=== PATIENT | male | born 1970 | race Caucasian/White ===

== ENCOUNTER → 2021-01-12 14:38 | Outpatient (CLI) | payer OTHER, SELFPAY ==
[2021-01-12 14:58] LABS: Add Manual Diff / Slide Review NO; Basophils Absolute Auto 0 /uL (0-100); Basophils Percent Auto 0.5 % (0-2); Eosinophils Absolute Auto 300 /uL (0-450); Eosinophils Percent Auto 5.3 % (2-4); Hematocrit 41.7 % (41-53); Hemoglobin 14.1 g/dL (13.5-17.5); Lymphocytes Absolute Auto 1500 /uL (1100-4500); Lymphocytes Percent Auto 25.7 % (25-40); Mean Corpuscular HGB Conc 33.8 % (30-36); Mean Corpuscular Hemoglobin 29.8 PG (26-34); Mean Corpuscular Volume 88.2 fL (80-100); Monocytes Absolute Auto 500 /uL (0-900); Monocytes Percent Auto 8.3 % (3-14); Neutrophils Absolute Auto 3600 /uL (1500-7000); Neutrophils Percent Auto 60.2 % (50-75); Platelet Count 243 X10^3/uL (150-400); Red Blood Cell Count 4.72 X10^6/uL (4.5-5.9); Red Cell Distribution Width 13.1 % (11.6-14.8)
[2021-01-12 16:56] LABS: Alanine Aminotransferase 57 IU/L (<50); Albumin 4.5 g/dL (3.5-5.0); Albumin Globulin Ratio 1.4 (1.0-2.8); Alkaline Phosphatase 53 U/L (38-126); Aspartate Aminotransferase 39 IU/L (17-59); BUN Creatinine Ratio 18.9 (6-22); Bilirubin Total 0.5 mg/dL (0.2-1.3); Blood Urea Nitrogen 17 mg/dL (9-20); Calcium 9.7 mg/dL (8.4-10.2); Carbon Dioxide 28 mmol/L (22-32); Chloride 103 mmol/L (98-107); Cholesterol 246 mg/dL (140-199); Estimated Glomerular Filt Rate > 60.0 mL/min (>60); Globulin 3.2 g/dL (1.7-4.1); Glucose 111 mg/dL (70-100); HDL Cholesterol 50 mg/dL (40-60); HEMOLYSIS < 15 (0-50); LDL Cholesterol Calculated 154 mg/dL (<100); Potassium 4.2 mmol/L (3.4-5.1); Sodium 139 mmol/L (137-145); Total Protein 7.7 g/dL (6.3-8.2); Triglycerides 209 mg/dL (35-150)
[2021-01-12 17:30] LABS: Prostate Specific Antigen 0.589 ng/mL (0.10-4.00)
== END ==
PROVIDERS: PCP Family Medicine; Referring Provider Family Medicine; Visit Provider Family Medicine
DX: I10 Essential (primary) hypertension (principal); M10.9 Gout, unspecified; R73.03 Prediabetes; Z83.79 Family history of other diseases of the digestive system
CPT/HCPCS: 36415; 80053; 80061; 83036; 84153; 84550; 85025

== ENCOUNTER → 2021-01-22 10:22 | Outpatient (CLI) | payer OTHER, SELFPAY ==
--- NOTE | 2021-01-22 10:24 | DI.US.S_ITS ---
PROCEDURE: US ABDOMEN LIMITED INDICATIONS: Family history of fatty infiltration of the liver. TECHNIQUE: Real-time focused scanning was performed of the abdomen, with image documentation. COMPARISON: None. FINDINGS: The liver demonstrates normal size. The liver demonstrates generalized moderately increased echogenicity. This decreases ultrasound sensitivity for detection of hepatic masses. Apparent focal fatty sparing can be seen adjacent to the gallbladder. No findings of gallstones or sludge are seen. The gallbladder wall is not thickened, measuring 3 mm or less. No specific pericholecystic fluid is seen. The sonographic Bliss sign is negative. There is no biliary dilatation, the common bile duct measures 4 mm. The pancreas is not well seen, secondary to overlying bowel gas. IMPRESSION: Fatty liver infiltration seen, with apparent fatty sparing seen adjacent to the gallbladder. Dictated by: Murali Dunham M.D. on 01/22/2021 at 10:41 Approved by: Murali Dunham M.D. on 01/22/2021 at 10:42
== END ==
PROVIDERS: PCP Family Medicine; Referring Provider Family Medicine; Visit Provider Family Medicine
DX: K76.0 Fatty (change of) liver, not elsewhere classified (principal); Z83.79 Family history of other diseases of the digestive system
CPT/HCPCS: 76705

== ENCOUNTER → 2022-10-27 09:08 | Outpatient (CLI) | payer OTHER, SELFPAY ==
[2022-10-27 09:48] LABS: Add Manual Diff / Slide Review NO; Basophils Absolute Auto 0 /uL (0-100); Basophils Percent Auto 0.7 % (0-2); Eosinophils Absolute Auto 200 /uL (0-450); Hematocrit 42.1 % (41-53); Hemoglobin 14.1 g/dL (13.5-17.5); Lymphocytes Absolute Auto 1700 /uL (1100-4500); Lymphocytes Percent Auto 32.7 % (25-40); Mean Corpuscular HGB Conc 33.5 % (30-36); Mean Corpuscular Hemoglobin 29.9 PG (26-34); Mean Corpuscular Volume 89.4 fL (80-100); Monocytes Absolute Auto 500 /uL (0-900); Monocytes Percent Auto 9.2 % (3-14); Neutrophils Absolute Auto 2800 /uL (1500-7000); Neutrophils Percent Auto 54.4 % (50-75); Platelet Count 252 X10^3/uL (150-400); Red Blood Cell Count 4.71 X10^6/uL (4.5-5.9); Red Cell Distribution Width 13.2 % (11.6-14.8); White Blood Cell Count 5.1 X10^3/uL (4.5-11.0)
[2022-10-27 10:47] LABS: Alanine Aminotransferase 51 IU/L (<50); Albumin 4.5 g/dL (3.5-5.0); Albumin Globulin Ratio 1.4 (1.0-2.8); Alkaline Phosphatase 52 U/L (38-126); Aspartate Aminotransferase 33 IU/L (17-59); BUN Creatinine Ratio 15.7 (6-22); Bilirubin Total 0.5 mg/dL (0.2-1.3); Blood Urea Nitrogen 14 mg/dL (9-20); Calcium 9.3 mg/dL (8.4-10.2); Carbon Dioxide 25 mmol/L (22-32); Chloride 103 mmol/L (98-107); Cholesterol 212 mg/dL (140-199); Estimated Glomerular Filt Rate > 60 mL/min (>60); Globulin 3.3 g/dL (1.7-4.1); Glucose 107 mg/dL (70-100); HDL Cholesterol 48 mg/dL (40-60); HEMOLYSIS 18 (0-50); LDL Cholesterol Calculated 142 mg/dL (<100); Potassium 4.4 mmol/L (3.4-5.1); Sodium 140 mmol/L (137-145); Total Protein 7.8 g/dL (6.3-8.2); Triglycerides 109 mg/dL (35-150); Uric Acid 7.7 mg/dL (3.5-8.5)
== END ==
PROVIDERS: PCP Family Medicine; Referring Provider Family Medicine; Visit Provider Family Medicine
DX: E78.5 Hyperlipidemia, unspecified (principal); I10 Essential (primary) hypertension; M10.9 Gout, unspecified; R73.03 Prediabetes
CPT/HCPCS: 36415; 80053; 80061; 83036; 84550; 85025

== ENCOUNTER → 2023-10-06 11:32 | Outpatient (CLI) | payer OTHER, SELFPAY ==
[2023-10-06 12:56] LABS: Add Manual Diff / Slide Review NO; Basophils Absolute Auto 0 /uL (0-100); Basophils Percent Auto 0.6 % (0-2); Eosinophils Absolute Auto 200 /uL (0-450); Eosinophils Percent Auto 3.1 % (2-4); Hematocrit 42.7 % (41-53); Hemoglobin 14.6 g/dL (13.5-17.5); Lymphocytes Absolute Auto 1800 /uL (1100-4500); Lymphocytes Percent Auto 24.2 % (25-40); Mean Corpuscular HGB Conc 34.2 % (30-36); Mean Corpuscular Hemoglobin 30.1 PG (26-34); Monocytes Absolute Auto 600 /uL (0-900); Monocytes Percent Auto 8.7 % (3-14); Neutrophils Absolute Auto 4700 /uL (1500-7000); Neutrophils Percent Auto 63.4 % (50-75); Platelet Count 313 X10^3/uL (150-400); Red Blood Cell Count 4.85 X10^6/uL (4.5-5.9); Red Cell Distribution Width 13.1 % (11.6-14.8); White Blood Cell Count 7.4 X10^3/uL (4.5-11.0)
[2023-10-06 13:24] LABS: Hemoglobin A1C% w Est Avg Glu 6.1 % (4.0-6.0)
[2023-10-06 13:33] LABS: Alanine Aminotransferase 43 IU/L (<50); Albumin 4.4 g/dL (3.5-5.0); Albumin Globulin Ratio 1.4 (1.0-2.8); Alkaline Phosphatase 58 U/L (38-126); Aspartate Aminotransferase 30 IU/L (17-59); BUN Creatinine Ratio 16.7 (6-22); Bilirubin Total 0.6 mg/dL (0.2-1.3); Blood Urea Nitrogen 14 mg/dL (9-20); Calcium 10.1 mg/dL (8.4-10.2); Carbon Dioxide 27 mmol/L (22-32); Chloride 102 mmol/L (98-107); Cholesterol 178 mg/dL (140-199); Estimated Glomerular Filt Rate > 60 mL/min (>60); Globulin 3.1 g/dL (1.7-4.1); Glucose 101 mg/dL (70-100); HDL Cholesterol 43 mg/dL (40-60); HEMOLYSIS < 15 (0-50); LDL Cholesterol Calculated 113 mg/dL (<100); Potassium 5.3 mmol/L (3.4-5.1); Sodium 138 mmol/L (137-145); Total Protein 7.5 g/dL (6.3-8.2); Triglycerides 112 mg/dL (35-150); Uric Acid 7.2 mg/dL (3.5-8.5)
[2023-10-06 13:55] LABS: Prostate Specific Antigen 0.936 ng/mL (0.10-4.00)
[2023-10-06 17:19] LABS: Creatinine Urine Random 137.5 mg/dL
[2023-10-06 17:20] LABS: Microalbumi Creatinin Ratio Ur 18.1 ug/mg CR (<30); Microalbumin Urine Random 2.5 mg/dL (0-1.6)
== END ==
PROVIDERS: PCP Family Medicine; Referring Provider Family Medicine; Visit Provider Family Medicine
DX: F98.8 Other specified behavioral and emotional disorders with onset usually occurring in childhood and adolescence (principal); E78.5 Hyperlipidemia, unspecified; M10.9 Gout, unspecified; R73.03 Prediabetes; I10 Essential (primary) hypertension; E78.2 Mixed hyperlipidemia
CPT/HCPCS: 36415; 80053; 80061; 82043; 82570; 83036; 84153; 84550; 85025

== ENCOUNTER 2024-02-01 10:20 | Day surgery (SDC) | payer OTHER, SELFPAY ==
--- NOTE | 2024-02-01 | PATH_ITS ---
[facility] Accession Number: [id number] No. of containers..05 Tissue . 01 Material submitted: . PART A: colon - APPENDICEAL ORIFICE POLYP PART B: colon - ASCENDING POLYPS PART C: colon - TRANSVERSE POLYP PART D: colon - DESCENDING POLYP PART E: rectum - RECTAL POLYP . 01 Diagnosis: Part A: APPENDICEAL ORIFICE POLYP: Hyperplastic polyp, with benign lymphoid aggregate. . Part B: ASCENDING POLYPS: Sessile serrated adenomas. . Part C: TRANSVERSE POLYP: Hyperplastic polyp. . Part D: DESCENDING POLYP: Hyperplastic polyp. . Part E: RECTAL POLYP: Tubular adenoma. [facility] 02/06/2024 1524 Local . 01 Electronically signed: . Marlon Vallejo MD, Pathologist NPI- [id number] . 01 Gross description: . A. Received in formalin with two identifiers and appendiceal orifice polyp, are two zamora soft tissue fragments 0.3 cm each in greatest dimension. Submitted in cassette A1. . B. Received in formalin with two identifiers and ascending polyp, are multiple zamora soft tissue fragments aggregating to 1.5 x 1.0 x 0.1 cm. Filtered and submitted entirely in cassette B1. . C. Received in formalin with two identifiers and transverse polyp, is a zamora soft tissue fragment 0.3 cm in greatest dimension. Submitted in cassette C1. . D. Received in formalin with two identifiers and descending polyp, is a zamora soft tissue fragment 0.4 cm in greatest dimension. Submitted in cassette D1. . E. Received in formalin with two identifiers and rectum polyp, is a zamora soft tissue fragment 0.3 cm in greatest dimension. Submitted in cassette E1. ([id number]) /[facility] 02/06/2024 1524 Local . 01 Pathologist provided ICD-10: D12.2, D12.8, K63.5 . 01 CPT . 411734, 826468, 928986, 779775, [id number] Specimen Comment: A courtesy copy of this report has been sent to [phone] Performed at: 01 [facility] [address] [place] [address], [place], [place] [id number] MD Marlon Vallejo MD Phone: [phone]
[2024-02-01 10:51] VITALS: BP 134/87; PULSE 55; RESP 12; TEMP 36.6; O2SAT 97
[2024-02-01] MEDS: LACTATED RINGERS 1,000 ML 42 ML IV (10:55)
--- NOTE | 2024-02-01 11:14 | P.HP_ITS ---
History of Present Illness History of Present Illness Date Patient Seen: 02/01/24 Time Patient Seen: 11:14 Chief complaint: Screening Colonoscopy Narrative: Nithin is a 53-year-old man who is here for a screening colonoscopy. He has never had 1 before. No known family history of colon cancer. [facility] Medical History (Updated 02/01/24 @ 11:15 by Juan Gonzalez MD) Well adult Vasectomy planned ADD (attention deficit disorder) Hyperlipidemia Steatosis Family history of fatty liver Gout Prediabetes Hypertension Surgical History (Updated 02/01/24 @ 10:43 by Myra Mcleod, MARITO) Hx of left knee surgery (~1986) Hx of wisdom tooth extraction (~2009) History of surgery on wrist (~2013) History of hernia repair (~2016) Social History Smoking Status: Never smoker alcohol intake: current substance use type: former substance user and marijuana Meds Home Medications and Allergies Home Medications Medication Instructions Recorded Confirmed Type amlodipine 5 mg tablet 5 mg PO DAILY #90 tabs 10/06/23 02/01/24 Rx pravastatin 40 mg tablet 40 mg PO BEDTIME #90 tabs 10/06/23 02/01/24 Rx sodium,potassium,mag sulfates 17.5 See Rx Instructions PO .COMPLEX 12/18/23 Rx gram-3.13 gram-1.6 gram oral soln #354 mL (Suprep Bowel Prep Kit) Allergies Allergy/AdvReac Type Severity Reaction Status Date / Time No Known Drug Allergies Allergy Verified 02/01/24 10:43 Exam Vital Signs (past 8 hours): - 02/01/24 10:51 Temperature 97.8 F Pulse Rate 55 L Respiratory Rate 12 Blood Pressure 134/87 Pulse Oximetry 97 Oxygen Delivery Method Room Air Oxygen Delivery Method Room Air Const General: No acute distress Resp Effort & Inspection: normal respiratory effort Assessment & Plan Assessment and plan (1) Colon cancer screening: Status: Acute Plan We reviewed the risks and benefits of colonoscopy for colon cancer screening and he would like to proceed.
[2024-02-01 12:00] VITALS: BP 116/72; PULSE 51; RESP 13; TEMP 36.1; O2SAT 98
--- NOTE | 2024-02-01 12:03 | PM.OP.COLON ---
Operative Date/Time/Diagnoses Date of procedure: 02/01/24 Time of procedure: 12:03 Pre-op diagnosis: Colon cancer screening Post-op diagnosis: same Procedure & Clinicians Study performed: Colonoscopy Same procedure as scheduled: Yes Surgeon: Juan Gonzalez Procedure Notes Procedure in detail: Surgeon: Juan Gonzalez MD Anesthesia: Lita Amaro CRNA Procedure: The patient was brought to the endoscopy suite, placed in left lateral decubitus position. The patient was connected to monitoring devices. A time-out was performed. Sedation was administered. Once the patient was adequately sedated, a digital rectal exam was performed and was normal. The scope was then inserted and advanced to the cecum where the appendiceal orifice was identified and photographed. The scope was then slowly withdrawn over greater than 6 minutes. The mucosa was thoroughly inspected. There was a small polyp at the appendiceal orifice removed with Jumbo forceps. There were 4 polyps in the ascending colon. The largest was about 1 cm. Each was removed with a cold snare and sent together. There was a small polyp in the transverse colon removed with a Jumbo forceps. There was a small polyp in the descending colon removed with the Jumbo forceps. There was a small polyp in the rectum removed with the Jumbo forceps. The scope was retroflexed in the rectum. No other abnormalities were seen. The scope was straightened and removed. The patient was awakened and brought to recovery. Scope withdrawal time: 23 minutes Sedation time: 26 minutes EBL: 5 mL Findings: 4 ascending colon polyps, the largest of which was 1 cm and subcentimeter polyps in the transverse colon, descending colon and rectum Post-procedure Disposition: PACU
[2024-02-01 12:04] VITALS: BP 115/76; PULSE 46; RESP 12; O2SAT 98
[2024-02-01 12:09] VITALS: BP 112/75; PULSE 43; RESP 12; O2SAT 98
[2024-02-01 12:14] VITALS: BP 123/79; PULSE 73; RESP 15; O2SAT 99
[2024-02-01 12:22] VITALS: BP 126/87; PULSE 49; RESP 16; O2SAT 99
== END 2024-02-01 12:38 | disposition home or self-care (01) ==
PROVIDERS: PCP Family Medicine; Referring Provider Surgery; Visit Provider Surgery
PROC: 0DJD8ZZ Inspection of Lower Intestinal Tract, Via Natural or Artificial Opening Endoscopic (ICD-10-PCS; CPT 45378; principal; 2024-02-01 11:30)
DX: Z12.11 Encounter for screening for malignant neoplasm of colon (principal); D12.2 Benign neoplasm of ascending colon; D12.8 Benign neoplasm of rectum; K63.5 Polyp of colon
CPT/HCPCS: 45385; 45380; J2704

== ENCOUNTER → 2025-01-17 15:55 | Outpatient (CLI) | payer BC, SELFPAY ==
[2025-01-17 16:26] LABS: Add Manual Diff / Slide Review NO; Basophils Absolute Auto 0 /uL (0-100); Basophils Percent Auto 0.7 % (0-2); Eosinophils Absolute Auto 500 /uL (0-450); Eosinophils Percent Auto 8.5 % (2-4); Hematocrit 41.4 % (41-53); Lymphocytes Absolute Auto 1600 /uL (1100-4500); Mean Corpuscular HGB Conc 33.8 % (30-36); Mean Corpuscular Hemoglobin 30.3 PG (26-34); Mean Corpuscular Volume 89.8 fL (80-100); Monocytes Absolute Auto 800 /uL (0-900); Monocytes Percent Auto 12.8 % (3-14); Neutrophils Absolute Auto 3400 /uL (1500-7000); Platelet Count 251 X10^3/uL (150-400); Red Blood Cell Count 4.61 X10^6/uL (4.5-5.9); Red Cell Distribution Width 13.6 % (11.6-14.8); White Blood Cell Count 6.3 X10^3/uL (4.5-11.0)
[2025-01-17 16:46] LABS: Alanine Aminotransferase 47 IU/L (<50); Albumin 4.8 g/dL (3.5-5.0); Albumin Globulin Ratio 1.6 (1.0-2.8); Alkaline Phosphatase 51 U/L (38-126); Aspartate Aminotransferase 35 IU/L (17-59); BUN Creatinine Ratio 14.6 (6-22); Bilirubin Total 0.6 mg/dL (0.2-1.3); Blood Urea Nitrogen 15 mg/dL (9-20); Calcium 9.8 mg/dL (8.4-10.2); Carbon Dioxide 29 mmol/L (22-32); Chloride 102 mmol/L (98-107); Cholesterol 180 mg/dL (140-199); Estimated Glomerular Filt Rate > 60 mL/min (>60); Glucose 106 mg/dL (70-100); HDL Cholesterol 59 mg/dL (40-60); HEMOLYSIS < 15 (0-50); LDL Cholesterol Calculated 105 mg/dL (<100); Potassium 4.2 mmol/L (3.4-5.1); Sodium 140 mmol/L (137-145); Total Protein 7.8 g/dL (6.3-8.2); Triglycerides 78 mg/dL (35-150); Uric Acid 4.7 mg/dL (3.5-8.5)
[2025-01-17 16:47] LABS: Hemoglobin A1C% w Est Avg Glu 5.7 % (4.0-6.0)
[2025-01-17 16:51] LABS: Erythrocyte Sedimentation Rate 10 MM/HR (0-15)
== END ==
PROVIDERS: PCP Family Medicine; Referring Provider Family Medicine; Visit Provider Family Medicine
DX: E78.5 Hyperlipidemia, unspecified (principal); M10.9 Gout, unspecified; R73.03 Prediabetes; I10 Essential (primary) hypertension
CPT/HCPCS: 36415; 80053; 80061; 83036; 84550; 85025; 85651